=== PATIENT | female | born 1960 | race Caucasian/White ===

== ENCOUNTER 2020-10-11 08:07 | Day surgery (SDC) | payer OTHER ==
[2020-10-11] MEDS ORDERED: Ringers Lactate 1,000 ML IV ONE ×2 (09:00→09:06)
[2020-10-11] MEDS ORDERED: CEFAZOLIN/SWI 1gm 1 GM/10 ML SYR ONE (09:00)
[2020-10-11] MEDS ORDERED: NS 0.9% VIAL 40 ML ONE (09:04)
[2020-10-11] MEDS ORDERED: LIDOCAINE 1% W/EPI 1:100,000 MDV 20 ML VIAL ONE (09:05)
[2020-10-11] MEDS ORDERED: Mastisol Adhesive Liq ONE (09:05)
[2020-10-11] MEDS ORDERED: GENTAMICIN SULF 80 MG/2ML INJ ONE (09:05)
[2020-10-11] MEDS ORDERED: CEFAZOLIN SODIUM 1 GM/VIAL ONE ×2 (09:05→13:32)
[2020-10-11] MEDS ORDERED: BACITRACIN 50000 UNIT VIAL ONE (09:06)
[2020-10-11] MEDS ORDERED: SCOPOLAMINE HYDROBROMIDE PATCH TD ONE (09:07)
--- NOTE | 2020-10-11 09:10 | RAD REPORT ---
EXAM DESCRIPTION: RAD - Chest Pa And Lat (2 Views) - 10/11/2020 8:02 am CLINICAL HISTORY: preop, pending breast surgery COMPARISON: None TECHNIQUE: Frontal and lateral views of the chest were obtained. FINDINGS: The lungs are clear of mass or acute infiltrate. No failure or volume overload. Interstiti al pattern is mildly prominent but nonspecific. No poppy mass or lymphadenopathy seen. Heart size is normal and central vasculature is within normal limits. No pleural effusion or pneumothorax seen. No acute bone finding. Bones do appear osteopenic. No aortic abnormality. IMPRESSION: No acute cardiopulmonary process.
[2020-10-11] MEDS ORDERED: KETOROLAC 30 MG/ML INJ ONE (09:29)
[2020-10-11] MEDS ORDERED: FENTANYL CITR 250 MCG/5 ML ONE (09:29)
[2020-10-11] MEDS ORDERED: dexAMETHasone 10 MG/ML VIAL ONE (09:29)
[2020-10-11] MEDS ORDERED: ROCURONIUM 50 MG/5 ML VIAL IV ONE (09:29)
[2020-10-11] MEDS ORDERED: MIDAZOLAM HCL 2 MG/2 ML INJ ONE (09:29)
[2020-10-11] MEDS ORDERED: ONDANSETRON 4 MG/2 ML VIAL ONE (09:30)
[2020-10-11] MEDS ORDERED: propofoL 200 MG/20 ML VIAL IV ONE (11:39)
[2020-10-11] MEDS ORDERED: NS 0.9% VIAL 10 ML ONE ×3 (11:39→14:24)
[2020-10-11] MEDS ORDERED: LIDOCAINE 2% MPF 5 ML VIAL ONE (11:39)
[2020-10-11] MEDS ORDERED: VECURONIUM 10 MG/VIAL IV ONE (11:40)
[2020-10-11] MEDS: Ringers Lactate 1,000 ML IV ONE ×2 (13:31→13:49)
[2020-10-11] MEDS ORDERED: MORPHINE 10 MG/ML VIAL ONE (14:24)
[2020-10-11] MEDS ORDERED: GLYCOPYRROLATE 0.2 MG/ML SYR ONE (14:56)
[2020-10-11] MEDS ORDERED: NEOSTIGMINE 1 MG/ML -5 ML ONE (15:14)
[2020-10-11 17:10] VITALS: BP 117/63; TEMP 97.7; O2SAT 95
[2020-10-11] MEDS ORDERED: CODEINE 30MG/APAP 300MG TAB ONE (17:10)
--- NOTE | 2020-10-12 01:50 | OP ---
Surgeon: Regino Suarez MD Preoperative Diagnosis: Breast enlargement, descent. Postoperative Diagnosis: Breast enlargement, descent. Procedure Performed: Breast reduction. Anesthesia: General. Operative Note: After satisfactory induction of general anesthesia, the chest was prepped with DuraP rep and dry sterile drapes applied in the usual manner. A 45 template was used to outline the right and left areolas. Then transverse curvilinear incisions were made. The skin was deepithelialized wi th dermabrader and tenotomy scissors and then the transverse incision was made on the left side. Dis section was proceeded down towards the sternum, clavicle, anterior axillary line. Then the inferior incision was made. The deepithelialized tissue was rotated in a cone after lateral tissue was excise d and then conization was performed with 2-0 PDS suture. Then straps were elevated at 12 o'clock, 10 :30 and 9 o'clock positions and then the straps were woven in and out of the pectoralis muscle back t o base of the pectoralis muscle back to base of cone back to base, pectoralis muscle back to base of cone. This was done for 12 o'clock and 10:30 straps. The 9 o'clock strap was sewn over the sternum at the 9 o'clock position with 2-0 Ethibond. Wound was simply stapled shut. Then the patient's oppo site side was done in mirror-image manner. The patient was sat up. was then made. Dog e ar was marked out. The patient returned supine. Right side was approached first. A scalpel was use d to excise the dog ears laterally and medially. A 10 VIANNEY brought out of the axilla. The wound was i rrigated with antibiotic solution and the wound was closed with 3-0 Vicryl subcu and 3-0 PDS running subcuticular tied from lateral medial, medial to medial lateral, tied in the vertical meridian of the breast. This was done in mirror-image manner, and then patient was sat up site and new nipple-areol ar complex was marked out. The tissue was cored out with a 45 template and then closed in layers wit h 4-0 PDS interrupted, followed by 4-0 PDS running subcuticular. After this was done, tincture of be nzoin, Steri-Strips, followed by Esmarch, fluffs and Jean wrap were applied. The patient tolerated pr ocedure well. 514 g removed from the right, 276 from the left. CANDIDO/MIRI Voice ID: [id number] Report ID: [id number]
== END 2020-10-11 17:08 | disposition home or self-care (01) ==
LOC: OR 08:07
PROVIDERS: ATTEND Specialist
PROC: 0HSV0ZZ Reposition Bilateral Breast, Open Approach (ICD-10-PCS; principal; 2020-10-11 10:00)
DX: N64.81 Ptosis of breast (principal); Z20.822 Contact with and (suspected) exposure to COVID-19
CPT/HCPCS: 88329; 88305 ×2; 88311; 71046; 19316; J2704; J1580; J2250; J3010; J1100; J2710; J0690 ×3; J7120 ×3; J2405